=== PATIENT | female | born 1950 | race Caucasian/White ===

== ENCOUNTER → 2016-12-07 | Outpatient (CLI) | payer OTHER ==
[~2016-12-07] MED LIST: BIFI4CAP PO; CALC1CAP8 PO; CHOL200012 PO; CYAN10005 PO; ESCI20TA10 PO; FEXO180T72 PO; FISH1CAP PO; MAGN400T7 PO; METF500T4 PO; MONT10TA6 PO; OMEP20TA62 PO; ROSU20TA PO; UBID100C24 PO; VALS80TA3 PO; VITA400T6 PO; potassium PO
[2016-12-07 16:07] LABS: BLOOD UREA NITROGEN 22 mg/dL (7-18)
[2016-12-07 16:16] LABS: ASPARTATE AMINO TRANSFERASE 12 U/L (15-37)
== END | disposition home or self-care (01) ==
LOC: STAR 14:46
PROVIDERS: ATTEND Orthopaedic Surgery
DX: Z01.818 Encounter for other preprocedural examination (principal); M12.872 Other specific arthropathies, not elsewhere classified, left ankle and foot; M12.871 Other specific arthropathies, not elsewhere classified, right ankle and foot; M84.362A Stress fracture, left tibia, initial encounter for fracture; M25.572 Pain in left ankle and joints of left foot; M25.571 Pain in right ankle and joints of right foot
CPT/HCPCS: 36415; 80053; 93005

== ENCOUNTER 2016-12-27 07:03 | Inpatient (IN) | payer OTHER ==
[~2016-12-27] VITALS: Ht 157.5 cm; Wt 73.0 kg
[2016-12-27] MEDS ORDERED: LACTATED RINGERS 1,000 ML IV SCH (07:35)
[2016-12-27 07:40] VITALS: BP 126/75
[2016-12-27] MEDS ORDERED: MIDAZOLAM 1 MG/ML, 2ML ONE ×2 (08:06)
[2016-12-27] MEDS ORDERED: FENTANYL PF 250 MCG/5ML ONE (08:06)
[2016-12-27] MEDS ORDERED: BUPIVACAINE/PF 0.5% ONE (08:09)
[2016-12-27] MEDS ORDERED: ROPIvacaine/PF 0.2%, 20 ML ONE (08:09)
[2016-12-27] MEDS ORDERED: SUCCINYLCHOLINE 20 MG/ML, 10ML ONE (09:22)
[2016-12-27] MEDS ORDERED: PROPOFOL 10 MG/ML, 20ML ONE (09:22)
[2016-12-27] MEDS ORDERED: ONDANSETRON 2MG/ML, 2ML ONE (09:22)
[2016-12-27] MEDS ORDERED: CEFAZOLIN 1,000 MG ONE (09:22)
[2016-12-27] MEDS ORDERED: DEXAMETHASONE 4 MG/ML, 1ML ONE (09:22)
[2016-12-27] MEDS ORDERED: ROPIvacaine/PF 0.2%, 100ML 550 ML (check volume) INJ ONE (10:00)
[2016-12-27] MEDS ORDERED: ALBUTEROL/IPRATROPIUM 2.5MG/0.5MG, 3 ML NPPB PRN (10:00)
[2016-12-27] MEDS ORDERED: LABETALOL 5MG/ML, 20ML IV PRN (10:00)
[2016-12-27] MEDS ORDERED: MIDAZOLAM 1 MG/ML, 2ML IV PRN (10:00)
[2016-12-27] MEDS ORDERED: ACETAMINOPHEN 325 MG TABLET PO PRN (10:00)
[2016-12-27] MEDS ORDERED: HYDROmorphone 1 MG/ML, 1ML IV PRN (10:00)
[2016-12-27] MEDS ORDERED: PROMETHAZINE 25 MG/ML, 1ML IV PRN (10:00)
[2016-12-27] MEDS ORDERED: hydrALAzine 20 MG/ML, 1ML IV PRN (10:00)
[2016-12-27] MEDS ORDERED: ONDANSETRON 2MG/ML, 2ML IVPush PRN (10:00)
[2016-12-27] MEDS ORDERED: OXYcodone 5 MG/5 ML ORAL.SOL UDC PO PRN (10:00)
[2016-12-27] MEDS ORDERED: MEPERIDINE/PF 25MG/0.5ML IVPush PRN (10:00)
[2016-12-27] MEDS ORDERED: FENTANYL PF 100 MCG/2ML ONE ×2 (12:28→12:48)
[2016-12-27] MEDS ORDERED: OXYcodone 5 MG/5 ML ORAL.SOL UDC ONE (12:28)
[2016-12-27] MEDS ORDERED: ACETAMINOPHEN 650 MG/20.3 ML UDC ONE (12:28)
[2016-12-27] MEDS: FENTANYL PF 100 MCG/2ML IV PRN ×4 (12:33→13:15)
[2016-12-27 13:35] VITALS: BP 115/70
[2016-12-27] MEDS ORDERED: morphine SULFATE 10 MG/ML, 1ML IV PRN (14:00)
[2016-12-27] MEDS ORDERED: PROMETHAZINE 25 MG/ML, 1ML IM PRN (14:00)
[2016-12-27] MEDS ORDERED: ONDANSETRON 2MG/ML, 2ML IV PRN (14:00)
[2016-12-27] MEDS: OMEPRAZOLE 20 MG CAPSULE.DR PO SCH (14:24)
[2016-12-27] MEDS: CITALOPRAM 20 MG TABLET PO SCH (14:24)
[2016-12-27] MEDS: metFORMIN 500 MG TABLET PO SCH (14:24)
[2016-12-27] MEDS: KETOROLAC 30 MG/1 ML IV SCH ×2 (14:28→21:34)
[2016-12-27] MEDS: LACTATED RINGERS 1,000 ML IV SCH (14:29)
[2016-12-27] MEDS: OXYcodone/APAP 5/325MG TABLET PO PRN ×2 (18:31→22:45)
[2016-12-27] MEDS ORDERED: ATORVASTATIN 40 MG TABLET PO SCH (21:00)
[2016-12-27] MEDS ORDERED: MONTELUKAST 10 MG TABLET PO SCH (21:00)
[2016-12-28 00:20] VITALS: BP 98/55
[2016-12-28] MEDS: OXYcodone/APAP 5/325MG TABLET PO PRN ×4 (03:18→16:31)
[2016-12-28 04:10] VITALS: BP 100/63
[2016-12-28] MEDS: KETOROLAC 30 MG/1 ML IV SCH (06:00)
[2016-12-28 07:22] VITALS: BP 90/54
[2016-12-28] MEDS: OMEPRAZOLE 20 MG CAPSULE.DR PO SCH (07:34)
[2016-12-28] MEDS: metFORMIN 500 MG TABLET PO SCH (07:34)
[2016-12-28] MEDS: CITALOPRAM 20 MG TABLET PO SCH (07:34)
[2016-12-28] MEDS: LACTATED RINGERS 1,000 ML IV SCH (07:35)
[2016-12-28] MEDS ORDERED: VALSARTAN 80 MG TABLET PO SCH (09:00)
[2016-12-28 13:18] VITALS: BP 109/68
== END 2016-12-28 17:52 | disposition home or self-care (01) | DRG 470 ==
LOC: ORIP 07:03 → 4NOR 13:30
PROVIDERS: ADMIT Orthopaedic Surgery; ATTEND Orthopaedic Surgery
PROC: 0SRG0JZ Replacement of Left Ankle Joint with Synthetic Substitute, Open Approach (ICD-10-PCS; principal; 2016-12-27 09:00)
DX: M19.072 Primary osteoarthritis, left ankle and foot (principal); J45.909 Unspecified asthma, uncomplicated; I10 Essential (primary) hypertension; Z98.891 History of uterine scar from previous surgery; Z82.3 Family history of stroke; Z88.8 Allergy status to other drugs, medicaments and biological substances
CPT/HCPCS: 76000; 82962; C1713; J0690; J1100; J1885; J2250; J2405; J2704; J2795; J3010; J3490; C1776; J0330; J7120